=== PATIENT | female | born 1990 | race Caucasian/White ===

== ENCOUNTER 2018-03-22 13:13 | Inpatient (IN) | payer BC, OTHER ==
[~2018-03-22] VITALS: Ht 175.3 cm; Wt 49.9 kg
--- NOTE | 2018-03-22 14:30 | NUR ---
pre-assessment note: pt was assessed in intake office and appears to be very tremulous and verbalizing I'm sick. pt verbalized i'm coming off from a lot of benzo's, pt noted with knee brace and wrist brace d/t injury from seizure history. pt appears to be tremulous during assessment questions but when asked to sort out belongings and sign consent pt appears to stop having tremors pt' V/S wnl. explained unit protocols and procedures. pt verbalized understanding. MD assessed pt in intake office and placed orders right away r/t seizure history.
[2018-03-22 15:25] VITALS: BP 140/94
[2018-03-22] MEDS ORDERED: 6 DAY PHENOBARBITAL TAPER -SERENITY PROTOCOL PO PRN (15:30)
[2018-03-22] MEDS ORDERED: THIAMINE HCL 200 MG/2 ML VIAL IM ONE (15:30)
[2018-03-22] MEDS ORDERED: LORAZEPAM 1 MG TABLET PO PRN (15:30)
[2018-03-22] MEDS ORDERED: LOPERAMIDE HCL 2 MG CAPSULE PO PRN ×2 (15:30)
[2018-03-22] MEDS ORDERED: MIRALAX 17 GM POWD.PACK PO PRN (15:30)
[2018-03-22] MEDS ORDERED: MAGNESIUM HYDROXIDE 30 ML LIQUID UDC PO PRN (15:30)
[2018-03-22] MEDS ORDERED: MAG HYDROX/AL HYDROX/SIMETH 30 ML LIQUID UDC PO PRN (15:30)
[2018-03-22] MEDS ORDERED: diphenhydrAMINE 50 MG CAPSULE PO PRN (15:30)
[2018-03-22 16:00] VITALS: BP 128/88
[2018-03-22 16:00] LABS: BASOPHILS % (AUTO) 0.5 % (0.0-2.0); EOSINOPHILS # (AUTO) 0.1 K/uL (0.0-0.7); EOSINOPHILS % (AUTO) 1.3 % (0.0-7.0); HEMATOCRIT 33.1 % (31.2-41.9); HEMOGLOBIN 10.9 g/dL (10.9-14.3); LYMPHOCYTES # (AUTO) 1.6 K/uL (20.0-40.0); LYMPHOCYTES % (AUTO) 26.3 % (20.5-51.5); MEAN CORPUSCULAR HEMOGLOBIN 27.7 uug (24.7-32.8); MEAN CORPUSCULAR HGB CONC 33 g/dL (32.3-35.6); MEAN CORPUSCULAR VOLUME 83.9 fL (75.5-95.3); MONOCYTES # (AUTO) 0.5 K/uL (2.0-10.0); MONOCYTES % (AUTO) 8.3 % (0.0-11.0); NEUTROPHILS # (AUTO) 3.9 K/uL (1.8-8.9); NEUTROPHILS % (AUTO) 63.6 % (38.5-71.5); PLATELET COUNT (AUTO) 355 K/uL (179-408); RED BLOOD CELL COUNT(AUTO) 3.94 MIL/uL (3.63-4.92); WHITE BLOOD COUNT (AUTO) 6.2 K/uL (3.8-11.8)
[2018-03-22] MEDS ORDERED: PHENOBARBITAL 60 MG TABLET PO SCH (16:00)
[2018-03-22 16:05] LABS: *URINE HCG, QUAL NEGATIVE (NEGATIVE)
[2018-03-22 16:10] LABS: ETHANOL < 3 MG/DL (0-0)
[2018-03-22 16:13] LABS: ALANINE AMINOTRANSFERASE 21 U/L (14-59); ALKALINE PHOSPHATASE 69 U/L (50-136); AMYLASE 42 U/L (25-115); ASPARTATE AMINOTRANSFERASE 16 U/L (15-37); BILIRUBIN,TOTAL 0.3 mg/dL (0.2-1.0); CARBON DIOXIDE 22 mmol/L (21-32); CHLORIDE 105 mmol/L (98-107); CREATININE 0.8 mg/dL (0.6-1.3); GLUCOSE 76 mg/dL (74-106); LIPASE 132 U/L (73-393); POTASSIUM 3.9 mmol/L (3.5-5.1); TOTAL PROTEIN, SERUM 7.7 g/dL (6.4-8.2); UREA NITROGEN, BLOOD 9 mg/dL (7-18)
[2018-03-22 16:14] LABS: *AMPHETAMINE, URINE NEGATIVE (NEGATIVE); *BARBITURATE, URINE POSITIVE (NEGATIVE); *CANNABINOID, URINE NEGATIVE (NEGATIVE); *COCCAINE, URINE NEGATIVE (NEGATIVE); *OPIATE, URINE NEGATIVE (NEGATIVE); *PHENCYCLIDINE SCREEN,URINE NEGATIVE (NEGATIVE)
[2018-03-22 16:23] LABS: THYROID STIMULATING HORMONE 1.993 mIU/mL (0.358-3.740)
[2018-03-22] MEDS: MULTIVITAMINS,THERAPEUTIC TABLET PO SCH (16:26)
[2018-03-22] MEDS: LEVETIRACETAM 500 MG TABLET PO SCH ×2 (16:26→21:07)
[2018-03-22] MEDS: FOLIC ACID 1 MG TABLET PO SCH (16:26)
[2018-03-22] MEDS: ONDANSETRON ODT 4 MG TAB.RAPDIS SL PRN (17:21)
[2018-03-22] MEDS: LORAZEPAM 1 MG TABLET PO PRN (17:21)
--- NOTE | 2018-03-22 17:21 | NUR ---
PRN GIVEN pt was c/o anxiety, agitation, sweats, nausea, dry heaving, and visual and auditory hallucinations. Pt's is observed shaking in bed with enlarged pupils. CIWA score was 22. Ativan 2mg PO PRN and Zofran 4mg SL PRN was given as ordered. Encouraged increase fluid intake. Will continue to monitor.
[2018-03-22 17:46] VITALS: BP 132/86
[2018-03-22 18:00] VITALS: BP 127/94
[2018-03-22] MEDS: IBUPROFEN 600 MG TABLET PO PRN (18:09)
[2018-03-22] MEDS: BUPRENORPHINE HCL 2 MG TAB.SUBL SL PRN (18:09)
[2018-03-22] MEDS: LORAZEPAM 2 MG/1 ML VIAL IM PRN (18:09)
--- NOTE | 2018-03-22 18:09 | NUR ---
NSG NOTE Pt was found on the bathroom floor by RN nurse having seizure like symptoms. Rapid response was called right away at 1746. Seizure like symptoms last for 3 minutes. Rapid response team was up on the unit at 1750. Pt was observed laying the floor with a blank face staring at the ceiling. Pt was able to response to name and touch. Pt is alert and oriented x4. Vital signs at 1746 was BP 132/86, P 100, R 16, O2 100%. Pt was able to stand on her own from the floor and was assisted to bed. Side rails where padded and up x2. VS were checked again at 1800; BP was 127/94, P90, and O2 was 100%. Pt was c/o headache, visual and auditory hallucinations. Dr. Bucio was notified with new order for CT scan of the head without contrast and to administer Ativan 2mg/1ml IM PRN for seizures. New order was noted and carried out. Pt was given Ativan 2mg/1ml IM PRN, Subutex 4mg SL PRN for COWS score of 15 upon admission and Motrin 600mg PO PRN for headache at 1809. Medication was erin well. Pt was encouraged increase fluid intake. After medication was given, pt requested to smoke. Pt was educated on the risks of smoking after seizures and was educated on smoking cessation. Pt needs further education. Pt was also place on 1:1 for safety. Will continue to monitor.
[2018-03-22] MEDS ORDERED: 5 DAY TAPER VALIUM-SERENITY PROTOCOL PO PRN (18:15)
--- NOTE | 2018-03-22 18:30 | NUR ---
PRN RE-ASSESSMENT Ativan 2mg/1ml IM PRN, Subutex 4mg SL and Motrin 600mg PO PRN was effective. Pt was insisting to go down to smoke and was doing jumping jacks in front of commercial lines underwriter. Pt states, "I feel better, I'm not going to have a seizure in the smoking patio". Pt was again educate on smoking cessation and she agreed on Nicotine Patch and Gum. Will continue to f/u with .
--- NOTE | 2018-03-22 19:10 | NUR ---
ADMISSION NOTE Pt is a 27 yr old female, AA&Ox4. Pt is presenting herself to [facility] for ETOH/Benzo/and Opiate use. Pt is observed disheveled and laying in bed, avoiding eye contact. Pt is c/o having visual and auditory hallucinations, nausea, dry heaving, anxiety, agitation, restlessness, teary eyes and loss of appetite. Pt was observed with fine tremors and enlarged pupils. Pt kept stating, "I dont feel good". Body check was complete, Skin is intact, warm and moist to touch. Lung sound are clear bilaterally. 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 Pt is noted immobilizer brace on left leg and brace on left wrist. Pt states of taking Gabapentin 900mg TID, Lamictal 150mg BID, Topamax 200mg BID, Seroquel 300mg HS and Seroquel 25mg as needed for anxiety/agitation . Pt only brought ProAir HFA for asthma. All home medication was reconciled, MD was made aware. No SI/HI was reported. Pt states she has had more than 100 seizures in the past 7 years. Last seizure was on 03/21/18, pt states, "I was walking to [employer] and I just collapsed". Pt states her friend call 911 and was taken to [place] to receive medical care. Pt states she was at the hospital for 12 hrs and was received Ativan for seizures. Last Ativan dose was on 03/22/18 at 0800. Pt also states of overdosing "over 20 times", last OD was 2 months ago and received medical care. Pt states, "my neighbor found me in my car faced up and not responding and called 911". She has also had "more than 50 times" Blackouts from ETOH and experienced withdrawal induced tremors from ETOH. Pt states she has also been on 5150 for danger to self "about 10 times" and one time 5250; Last 5150 was 1 year ago. Pt states PCP is Dr. Laurent and Psychiatrist is Dr. Bob. SUBSTANCE USE: ETOH: Pt states she began drinking daily for the past 8 years. Pt states, "this run has been 7 months drinking 2L of vodka daily", Last use was on 03/22/18 at 1100, pt states of drinking 4-5 shots of vodka Xanax: Pt states she first started using Xanax 11-12 years ago but has been using 60mg PO daily for the last 7 months. Last use was on 03/21/18, Pt states, "I last used at 10 o'clock, I used 3 bars[12mg]". Valium : Pt states she first started using Valium 11-12 yrs ago but has been using 40mg PO daily for the past 7 months. Last use was on 03/21/18 at 2000, pt states she took 40mg PO. Percocet: Pt states she first started using Percocet at 22 yrs old but has been using 60mg PO daily for the past 7 months. Last use was on 03/21/18 at 0900, pt states of consuming 20mg PO. TREATMENT HX: Pt states she has been going in and out of several treatment for the past 7 years. Pt states, "Over 20 treatments" Pt states she is only able to recall the last 2 treatments, which are [facility] [place] in August 2016 and maintain sobriety for 1 year and 1 day. Pt states she relapsed because she moved out on her own for the first time and felt lonely. Pt then went to [facility] 5 months ago and was there for 2 days received Barbiturates. Pt states she was having seizures while at [facility] and was sent to the ER for medical care. Pt states she fist began using "to be cool" and she "liked the feeling of everything when [she] was high" but afterwards she began using daily when she found out she was not able to play soccer. Pt states, "I felt like I lost my dream, I lost my identity". Pt states she feel s like if she does not get sober she will end up losing her life. She verbalizes that her mental illness are her triggers for relapse. Pt states, "If I'm sad or depressed, I use and if I'm angry, I use". Pt states she has friends and family to support her from recovery and out of recovery. Pt states using substances as negatively impacted her life, she states she has lost many jobs, friendships, relationships and states "I almost lost my life". Pt does states of wanting to go into treatment after care. Addendum: 03/23/18 at 1304 by BONY ZAMUDIO RN Clarification of Treatment History: Patient states she was at [facility] 1.5 weeks ago, not 5 months ago. Per patient, she stayed for 2 days and was given phenobarbital.
[2018-03-22] MEDS ORDERED: GABA300C PO (19:42)
[2018-03-22] MEDS ORDERED: LAMO150T2 PO (19:42)
[2018-03-22] MEDS ORDERED: TOPI200T PO (19:43)
[2018-03-22] MEDS ORDERED: QUET300T2 PO (19:44)
[2018-03-22] MEDS ORDERED: QUET25TA PO (19:45)
[2018-03-22 20:00] VITALS: BP 131/88
--- NOTE | 2018-03-22 20:00 | NUR ---
Start of Shift Patient with 1:1 sitter for safety r/t mild weakness on BLE and episodes of seizure-like activity. Patient appears disheveled, with dirty fingernails and strong body odor. Patient also is anxious and easily agitated. Patient with flushed face, is sweating and c/o chills. Patient also verbalized having intermittent visual hallucinations. PRN medications are available and will be given. Provided education on treatment and medications. With brace on left wrist and left knee. Fall, universal, seizure and safety prec in place. Call light within reach. Latest COWS=13, CIWA=16. Will continue to monitor.
[2018-03-22] MEDS ORDERED: ALBU8.5H8 IH (20:23)
[2018-03-22] MEDS ORDERED: NICOTINE 7 MG/24HR PATCH TD ONE (20:30)
[2018-03-22] MEDS ORDERED: QUETIAPINE FUMARATE 200 MG TABLET PO ONE (20:30)
[2018-03-22] MEDS ORDERED: NICOTINE POLACRILEX 4 MG GUM-PK OF TEN BC ONE (20:30)
[2018-03-22] MEDS ORDERED: GABAPENTIN 300 MG CAPSULE PO ONE (20:30)
[2018-03-22] MEDS ORDERED: DIAZEPAM 10 MG TABLET PO SCH (21:00)
[2018-03-22] MEDS ORDERED: NICOTINE POLACRILEX 4 MG GUM-PK OF TEN BC PRN (21:00)
[2018-03-22] MEDS ORDERED: NICOTINE 21 MG/24HR PATCH TD ONE (21:53)
[2018-03-23 00:30] VITALS: BP 135/97
--- NOTE | 2018-03-23 00:30 | NUR ---
COWS=15, CIWA=18 Patient noted to be easily agitated, is anxious, with sweating and has flushed skin. Patient continues to c/o intermittent visual hallucinations, verbalized seeing "olivares are moving" and "jumping rabbits". Continues on 1:1. PRN meds to be administered.
[2018-03-23] MEDS ORDERED: CIPR2.5D OP (00:33)
[2018-03-23] MEDS ORDERED: EMOL20CR TP (00:33)
[2018-03-23] MEDS: NICOTINE 21 MG/24HR PATCH TD SCH (00:41)
[2018-03-23] MEDS: LORAZEPAM 1 MG TABLET PO PRN ×2 (00:41→05:08)
[2018-03-23] MEDS: BUPRENORPHINE HCL 2 MG TAB.SUBL SL PRN ×2 (00:42→05:08)
--- NOTE | 2018-03-23 00:45 | NUR ---
PRN Subutex and PRN Ativan Patient with COWS=15 and CIWA=18, noted to have increasing anxiety, agitation, sweating, chills, flushed skin and bilateral hand tremors. Administered Subutex 4 mg SL PRN and Ativan 2 mg PO PRN. Will reassess.
[2018-03-23] MEDS ORDERED: BUTA1CAP46 PO (00:47)
--- NOTE | 2018-03-23 01:45 | NUR ---
Subutex and Ativan reassess Patient appears more calm, still anxious but verbalized that anxiety level has decreased. Patient continues to have sweats and chills. No hallucinations at this time. COWS=12, CIWA=14.
[2018-03-23 04:00] VITALS: BP 132/84
--- NOTE | 2018-03-23 04:00 | NUR ---
COWS=11, CIWA=13 Patient is easily agitated, less anxious, with sweating and has flushed skin. Patient continues to c/o muscle tightness and has tremors. Continues on 1:1.
--- NOTE | 2018-03-23 05:07 | NUR ---
PRN Motrin Patient c/o pain on left knee=11/12. Administered Motrin 600 mg PO PRN as ordered. Will reassess.
[2018-03-23] MEDS: IBUPROFEN 600 MG TABLET PO PRN (05:08)
--- NOTE | 2018-03-23 05:09 | NUR ---
PRN Subutex and Ativan Patient c/o increasing anxiety, with intermittent visual hallucination, sweating and flushed skin. Patient also noted to have tremors. COWS=13, CIWA=16. Administered Subutex 4 mg SL and Ativan 2 mg PO. Will reassess.
--- NOTE | 2018-03-23 05:40 | NUR ---
Subutex reassess Patient with decreased tremors and appears less anxious. COWS=10.
--- NOTE | 2018-03-23 06:08 | NUR ---
Motrin reassess Patient verbalized pain level=2-3/10.
--- NOTE | 2018-03-23 06:10 | NUR ---
Ativan reassess Patient verbalized feeling less anxious and noted to have less tremors. CIWA=12.
--- NOTE | 2018-03-23 07:27 | NUR ---
End of Shift Patient continues to have intermittent visual hallucinations and with anxiety and is easily agitated. Patient continues to be on 1:1 for safety. No episode of seizure-like activity during the shift. Patient appears flushed, with moist skin on the face and with racing thoughts. Patient is disheveled, unkempt and with strong body odor. Braces on left knee and left wrist are in place. Fall, universal, seizure and safety prec in place. Call light within reach. Latest COWS= 10, CIWA=12 and slept for 7 hours. Endorsed to AM shift nurse for continuity of care.
--- NOTE | 2018-03-23 07:30 | NUR ---
Start of Shift Rifle Case Repairer received report on 27 year old female admitted to [facility] on 03/22/18 for medical management of ETOH, Benzodiazepine and Opiate withdrawals. Pt endorses allergies to Hydrocodone and unspecified nuts. Pt endorses a PMH of asthma, tinnitus, history of ulcers and history of seizures, with chronic back pain. PPH of anxiety, depression, anorexia, panic attacks and Bipolar DO. Pt currently on a Valium and Subutex taper with last CIWA 12 and COWS 10, per NOC report. Per report pt was administered PRN Ativan and Subutex, on NOC. Rifle Case Repairer encounters pt in pts room, pt resting with eyes closed, even and unlabored respirations. Bed in low position with wheels locked and side rails up x2. Will continue to monitor, support and encourage according to plan of care. Addendum: 03/23/18 at 1145 by JAE FRAZIER RN Pt currently with 1:1 staffing due to seizure like event pt experienced yesterday.
[2018-03-23 08:00] VITALS: BP 106/68
--- NOTE | 2018-03-23 08:00 | NUR ---
CIWA 10/COWS 10 Pt is diaphoretic, tremulous and anxious. With complains of myalgia and nausea. Will continue to monitor, support and encourage according to plan of care.
[2018-03-23] MEDS ORDERED: PHENOBARBITAL 60 MG TABLET PO SCH (09:00)
[2018-03-23] MEDS ORDERED: TUBERCULIN,PURIF.PROT.DERIV. 5 TU/0.1 ML TEST ID ONE (09:00)
[2018-03-23] MEDS: DIAZEPAM 10 MG TABLET PO SCH ×3 (09:57→21:02)
[2018-03-23] MEDS: ****PATIENT'S OWN MED IH PRN (09:57)
[2018-03-23] MEDS: THIAMINE HCL 100 MG TABLET PO SCH (09:57)
[2018-03-23] MEDS: LEVETIRACETAM 500 MG TABLET PO SCH ×2 (09:57→21:01)
[2018-03-23] MEDS: FOLIC ACID 1 MG TABLET PO SCH (09:57)
[2018-03-23] MEDS: MULTIVITAMINS,THERAPEUTIC TABLET PO SCH (09:57)
[2018-03-23] MEDS: BUPRENORPHINE HCL 2 MG TAB.SUBL SL SCH ×4 (09:58→21:02)
[2018-03-23 12:00] VITALS: BP 96/62
--- NOTE | 2018-03-23 12:00 | NUR ---
CIWA 15/COWS 12 Pt is diaphoretic, tremulous, anxious and restless. Pt with complaints of nausea and myalgia. Will continue to monitor, support and encourage according to plan of care.
[2018-03-23] MEDS ORDERED: PATIENT MAY USE OWN MED- MD OK INH PRN (13:15)
[2018-03-23] MEDS: GABAPENTIN 300 MG CAPSULE PO SCH ×2 (13:56→17:25)
[2018-03-23] MEDS: LAMOTRIGINE 100 MG TABLET PO SCH ×2 (13:57→21:01)
[2018-03-23] MEDS: TOPIRAMATE 100 MG TABLET PO SCH ×2 (13:57→21:02)
[2018-03-23] MEDS ORDERED: 5 DAY TAPER BUPRENORPHINE -SERENITY PROTOCOL SL PRN (15:30)
[2018-03-23 16:30] VITALS: BP 109/61
--- NOTE | 2018-03-23 16:30 | NUR ---
CIWA 11/COWS 11 Pt is diaphoretic, fine tremors, anxious and restless, with complaints of myalgia and chills. Will continue to monitor, support and encourage according to plan of care.
--- NOTE | 2018-03-23 19:30 | NUR ---
End of Shift [place]ra [place]ta Roofer Helper provided report on 27 year old female admitted to [facility] on 03/22/18 for medical management of ETOH, Benzodiazepine and Opiate withdrawals. Pt endorses allergies to Hydrocodone and unspecified nuts. Pt endorses a PMH of asthma, tinnitus, history of ulcers and history of seizures, with chronic back pain. PPH of anxiety, depression, anorexia, panic attacks and Bipolar DO. Pt currently on a Valium and Subutex taper with last CIWA 11 and COWS 11. Pt was administered PRN Asthma inhaler and Nicotine gum this shift. Pt is A/O x4 and able to make needs known. Gardner thought process with clear speech pattern. Pt is manipulative and entitled at times. Flat affect with a depressed mood. Pt is anxious, restless, diaphoretic, tremulous and complains of myalgia and chills. Bed in low position with wheels locked and side rails up x2.
--- NOTE | 2018-03-23 19:47 | NUR ---
START OF SHIFT NOTE Rcvd report from outgoing nurse. Pt is a 27 y/o female A/O to person, place, time, and purpose. Pt was admitted for medically supervised withdrawal from ETOH, Benzodiazepines, and Opiates. Pt is on day 1 of a 5 day Valium and Subutex taper. Pt has been presenting w/ anxiety, auditory and visual hallucinations, body aches, sweats, chills, lethargy, abdominal cramps, and tremors. Pt rcvd no PRN medications during previous shift. Last CIWA 11 and COWS 11 @ 1600. Call light is within reach. Pt will continue to be monitored and needs met.
[2018-03-23 20:09] VITALS: BP 97/55
--- NOTE | 2018-03-23 20:09 | NUR ---
CIWA AND COWS ASSESSMENT CIWA 13 and COWS 11. Pt has been presenting w/ anxiety, auditory and visual hallucinations, body aches, sweats, chills, lethargy, abdominal cramps, and tremors. V/S: T:98.0, P:90, RR:14, SPO2:100, BP:97/55.
[2018-03-23] MEDS: ONDANSETRON ODT 4 MG TAB.RAPDIS SL PRN (23:25)
--- NOTE | 2018-03-23 23:25 | NUR ---
PRN ZOFRAN ADMINISTRATION Zofran 4mg SL given for nausea w/ no emesis. Will reassess pt in 1 hr.
--- NOTE | 2018-03-24 00:12 | NUR ---
CIWA AND COWS DEFERRED. V/S REFUSED Pt was in bed w/ her eyes closed. Pt's respirations are unlabored and even.
--- NOTE | 2018-03-24 00:25 | NUR ---
PRN ZOFRAN REASSESSMENT Pt is in bed w/ her eyes closed. Pt's respirations are unlabored and even.
[2018-03-24] MEDS: METHOCARBAMOL 750 MG TABLET PO PRN ×2 (01:07→15:30)
--- NOTE | 2018-03-24 01:07 | NUR ---
PRN ROBAXIN ADMINISTRATION Robaxin 750mg given for body aches and pain. Pt c/o generalized pain 12/13. Will reassess pt in 1 hr
--- NOTE | 2018-03-24 02:06 | NUR ---
Seizure like activity 1:1 observer called nurse to room for seizure like activity noted from patient. Nurse arrived in room and witnessed patient having seizure like convulsions with no muscle rigidity, teeth grinding, nor jaw clenching. Safety provided by guarding patient from injury. Activity lasted from 205 until 215, second occurrence from 215 until 220, third occurrence from 222 until 223, and fourth occurrence from 227 until 233. V/S @0243 BP: 118/69 HR: 109 RR: 16 T: 98.4 O2: 97%, and @0252 BP: 114/70 HR: 100 RR: 16 T: 98.6 O2: 95% . MD made aware with no new orders at this time. Pt is alert and oriented and able to communicate needs to staff. Respirations even and unlabored. Will continue to monitor. Addendum: 03/25/18 at 0620 by ROSY STALLINGS LVN Error, incorrect date.
--- NOTE | 2018-03-24 02:07 | NUR ---
PRN MAKI REASSESSMENT Pt is in bed w/ her eyes closed. pt's respirations are unlabored and even.
[2018-03-24] MEDS: ****PATIENT'S OWN MED IH PRN (03:31)
[2018-03-24] MEDS: HYDROXYZINE PAMOATE 25 MG CAPSULE PO PRN (03:31)
[2018-03-24] MEDS: CLONIDINE HCL 0.1 MG TABLET PO PRN (03:31)
--- NOTE | 2018-03-24 03:31 | NUR ---
PRN CLONIDINE, VISTARIL, AND VENTOLIN ADMINISTRATION Clonidine 0.1mg and Vistaril 50mg given for anxiety, agitation, and sweats. Pt c/o not being able to stay asleep bc of racing thoughts, restlessness, and bouts of sweating/hot flashes. Ventolin Inhaler 1 puff given for SOB. Pt c/o tightness in chest and difficulty breathing. Will reassess pt in 1 hr.
--- NOTE | 2018-03-24 04:04 | NUR ---
CIWA AND COWS DEFERRED. V/S REFUSED Pt is in bed w/ her eyes closed. Pt's respirations are unlabored and even.
--- NOTE | 2018-03-24 04:31 | NUR ---
PRN VISTARIL, CLONIDINE, AND VENTOLIN REASSESSMENT Pt is in bed w/ her eyes closed. Pt's respirations are unlabored and even.
[2018-03-24 07:06] LABS: HEPATITIS B SURFACE AG Negative (Negative)
--- NOTE | 2018-03-24 07:10 | NUR ---
END OF SHIFT NOTE Endorsed pt to oncoming nurse. Pt is a 27 y/o female A/O to person, place, time, and purpose. Pt was admitted for medically supervised withdrawal from ETOH, Benzodiazepines, and Opiates. Pt completed day 1 of a 5 day Valium and Subutex taper. Pt continues presenting w/ anxiety, auditory and visual hallucinations, body aches, sweats, chills, lethargy, abdominal cramps, and tremors. Pt denies any S/I or H/I. PRN Vistaril 50mg, Clonidine 0.1mg, Zofran 4mg, Robaxin 750mg, and Ventolin 1 puff given and noted effective. Pts fluid intake was 800ml and she slept for 9hrs. Last CIWA 13 and COWS 11 @ 1999. Call light is within reach.
--- NOTE | 2018-03-24 07:30 | NUR ---
Start of Shift Gas Appliance Mechanic received report on 27 year old female admitted to [facility] on 03/22/18 for medical management of ETOH, Benzodiazepine and Opiate withdrawals. Pt endorses allergies to Hydrocodone and unspecified nuts. Pt endorses a PMH of asthma, tinnitus, history of ulcers and history of seizures, with chronic back pain. PPH of anxiety, depression, anorexia, panic attacks and Bipolar DO. Pt currently on a Valium and Subutex taper with last CIWA 13 and COWS 11, per NOC report. Per report pt was administered PRN Zofran(nausea), Vistaril(anxiety), Clonidine(anxiety), Robaxin(myalgia) and Ventolin Inhaler(SOB), on NOC. Gas Appliance Mechanic encounters pt in pts room, pt resting with eyes closed, even and unlabored respirations. 1:1 staff attendant at bedside. Bed in low position with wheels locked and side rails up x2. Will continue to monitor, support and encourage according to plan of care.
[2018-03-24 08:00] VITALS: BP 115/78
--- NOTE | 2018-03-24 08:00 | NUR ---
CIWA 13/COWS 11 Pt is diaphoretic, irritable, tremulous, anxious, restless and has complaints of nausea and chills with pain related to orthopedic injuries. Will continue to monitor, support and encourage according to plan of care.
[2018-03-24] MEDS: NICOTINE 21 MG/24HR PATCH TD SCH ×2 (09:00→20:31)
[2018-03-24] MEDS ORDERED: PHENOBARBITAL 60 MG TABLET PO SCH (09:00)
[2018-03-24] MEDS: GABAPENTIN 300 MG CAPSULE PO SCH ×3 (09:10→17:20)
[2018-03-24] MEDS: THIAMINE HCL 100 MG TABLET PO SCH (09:10)
[2018-03-24] MEDS: BUPRENORPHINE HCL 2 MG TAB.SUBL SL SCH ×3 (09:10→20:18)
[2018-03-24] MEDS: TOPIRAMATE 100 MG TABLET PO SCH ×2 (09:10→20:19)
[2018-03-24] MEDS: FOLIC ACID 1 MG TABLET PO SCH (09:10)
[2018-03-24] MEDS: MULTIVITAMINS,THERAPEUTIC TABLET PO SCH (09:10)
[2018-03-24] MEDS: LEVETIRACETAM 500 MG TABLET PO SCH ×2 (09:10→20:19)
[2018-03-24] MEDS: DIAZEPAM 5 MG TABLET PO SCH ×4 (09:10→20:19)
[2018-03-24] MEDS: LAMOTRIGINE 100 MG TABLET PO SCH ×2 (09:11→20:19)
[2018-03-24 12:00] VITALS: BP 88/46
--- NOTE | 2018-03-24 12:00 | NUR ---
CIWA 16/COWS 11 Pt is diaphoretic, tremulous, anxious, restless, nauseous and complains of tactile and visual hallucinations. Will continue to monitor, support and encourage according to plan of care.
[2018-03-24] MEDS: ONDANSETRON ODT 4 MG TAB.RAPDIS SL PRN (13:27)
--- NOTE | 2018-03-24 13:27 | NUR ---
LIZ Carpenter Pt states she is nauseous and would like medication. Bushwalking Guide administered medication to order, with pt tolerating well. Will continue to monitor, support and encourage according to plan of care.
[2018-03-24] MEDS ORDERED: AMMONIA AROMATIC IH ONE ×4 (14:15→16:45)
--- NOTE | 2018-03-24 14:15 | NUR ---
MD Communication: Patient presenting with seizure-like symptoms. Verbal order received for aromatic ammonia. Order noted and carried out. Order entered on behalf of Dr. Bucio during emergency/rapid response.
[2018-03-24] MEDS: LORAZEPAM 2 MG/1 ML VIAL IM PRN (14:25)
--- NOTE | 2018-03-24 14:25 | NUR ---
PRN IM Ativan Pt presents with seizure like symptoms. Medication and is prepared and administered per MD order. Dr. Bucio is present. Pt tolerated administration well. Will continue to monitor, support and encourage according to plan of care.
--- NOTE | 2018-03-24 14:30 | NUR ---
Seizure Like Activity Pt with 1:1 staff at bedside for safety. 1:1 attendant alerted staff of seizure like activity, beginning at 1408, pt convulsing and shaking. Director Of Community Education arrives with staff supporting pt in bed, for safety. O2 monitor attached saturating at 92%, applied non-rebreather and pt now saturating at 99% on 2L, with respirations at 14. BP: 126/71 with pulse of 121. Pt continues convulsing until 1411. Pt abruptly stops, but begins convulsing again at 1412 and Rapid Response is called. Pt continued convulsing until 1415, with RR team on the scene at 1418. Dr. Bucio is present in the room and instructs staff to administer Ativan IM per PRN orders. Pt's eyes are reactive to light, respirations are unlabored, no muscle rigidity or clenching of the jaw noted. Pt was noted to have been communicating with staff at start of convulsions. Pt is currently A/O and is making her needs known. Asking for medication for muscle spasms and pain related to seizure like activity.
--- NOTE | 2018-03-24 14:48 | NUR ---
Neurology Consult: placed order for neurology consult. Dr. Lyn's office called and left a message for urgent consult.
--- NOTE | 2018-03-24 14:55 | NUR ---
PRN Re-Assessment Pt is resting in room with no complaints voiced. Will continue to monitor, support and encourage according to plan of care.
[2018-03-24] MEDS: IBUPROFEN 600 MG TABLET PO PRN ×2 (15:30→23:52)
--- NOTE | 2018-03-24 15:30 | NUR ---
PRN Motrin and Robaxin Pt complains of pain and muscle soreness. Pt requests medications by name. Digital Media Buyer administered medication per order with pt tolerating well. Will continue to monitor, support and encourage according to plan of care.
[2018-03-24] MEDS: VENLAFAXINE XR 37.5 MG CAP.SR.24H PO SCH (15:38)
--- NOTE | 2018-03-24 16:03 | NUR ---
Seizure Like Activity Seed Analyst called to pt's room by 1:1 attendant. Pt is convulsing with staff at pt's side holding pt for safety. Pt convulsed until 1606 and abruptly stopped. Pt BP: 120/61, Resp 16, O2 95% and pulse 112. Pt is convulsing with no rigidity in muscles noted. No jaw clenching or jaw grinding noted. Pt's respirations remained even and unlabored thru out activity. Pt with no evacuation of bowels or urine. Will continue to monitor, support and encourage according to plan of care.
[2018-03-24 16:30] VITALS: BP 120/61
--- NOTE | 2018-03-24 16:30 | NUR ---
PRN RE-Assessment Pt is resting in bed with 1:1 staff at bedside. Will continue to monitor, support and encourage according to plan of care.
--- NOTE | 2018-03-24 16:33 | NUR ---
Neurology Consult: Called Dr. Lyn's office again but no reply. Left message message for urgent neurology consult. shuttle preparation supervisor gave number for different neurologist, . No answer from Dr. Max's office. Left message for urgent neurology consult.
--- NOTE | 2018-03-24 16:44 | NUR ---
Seizure Like Activity Assistant Finance Manager alerted to pt's room by 1:1 staff due to pt begging to convulse. Assistant Finance Manager arrives in pt's room with staff present providing safety for pt by holding pt. Pt is convulsing with no muscle rigidity, jaw clenching or grinding. Respirations remained even and unlabored at 14. BP: 127/82 - Pulse 108 - O2 96%. Pt stops convulsing at 1746. CRN and DON present in the room. notified. Pt is A/O and able to make her needs known. Will continue to monitor, support and encourage according to plan of care.
--- NOTE | 2018-03-24 19:32 | NUR ---
Seizure like activity 1:1 observer called nurse to room for seizure like activity noted from patient. Nurse arrived in room and witnessed patient having seizure like convulsions with no muscle rigidity, teeth grinding, nor jaw clenching. Safety provided by guarding patient from injury. activity lasted until 1940. V/S @1940 BP: 130/72 HR: 109 RR: 14 T: 98.2 O2: 99% and @1949 BP: 108/63 HR: 95 RR: 16 T: 98.4 O2: 99%. made aware with no new orders at this time. Pt is alert and oriented and able to communicate needs to staff. Respirations even and unlabored. Will continue to monitor.
--- NOTE | 2018-03-24 19:34 | NUR ---
End of Shift Rate Clerk Passenger provided report on 27 year old female admitted to [facility] on 03/22/18 for medical management of ETOH, Benzodiazepine and Opiate withdrawals. Pt endorses allergies to Hydrocodone and unspecified nuts. Pt endorses a PMH of asthma, tinnitus, history of ulcers and history of seizures, with chronic back pain. PPH of anxiety, depression, anorexia, panic attacks and Bipolar DO. Pt currently on a Valium and Subutex taper with last CIWA 11 and COWS 12. Pt was administered PRN Robaxin(myalgia), Zofran(nausea), Motrin(pain) and Ativan IM(seizure like activity) on this shift. Pt had three episodes of seizure like activities today. Pt was convulsing and shaking, no muscle rigidity or jaw clenching or teeth grinding noted. Pts respirations remained even and unlabored and pt did not evacuate bowels or urine. Pt is A/O and makes her needs known. Blunted affect and depressed mood, dysphoric. Pt is pre-occupied and slow to process at times. Pt is manipulative and gamey. Bed in low position with wheels locked and side rails up x2.
--- NOTE | 2018-03-24 19:35 | NUR ---
Start of shift note Received report from day shift nurse. Pt is a 27 yo female, A+Ox4, presenting to [facility] for medically supervised ETOH/Benzo/Opiate withdrawal. Pt noted with fatigue, anxiety, agitation, and sweat on brow. Pt has HX of anxiety, depression, bipolar disorder, panic attacks, ulcers, seizure, Left knee FX and SX, sprained Left wrist, tinnitus, anorexia, chronic back pain, and UTI which will be monitored during shift. Pt is on 5 day Valium and 5 day Subutex tapers, tolerated well. Respirations even and unlabored. Will continue to monitor.
[2018-03-24 20:12] VITALS: BP 101/61
--- NOTE | 2018-03-24 20:12 | NUR ---
COWS and CIWA Assessment COWS: 11 and CIWA: 10. Pt noted with nausea, fine tremors, sweat on brow, anxiety, agitation, pulse 94, restlessness, mild diffuse discomfort, stuffy nose, and stomach cramps. Respirations even and unlabored. Will continue to monitor.
--- NOTE | 2018-03-24 23:52 | NUR ---
PRN Motrin Pt c/o generalized body pain 5/10 and requested for PRN Motrin. Medication given and tolerated well. Will reassess within 1 HR. Will continue to monitor.
[2018-03-25 00:07] VITALS: BP 109/73
--- NOTE | 2018-03-25 00:07 | NUR ---
COWS and CIWA Assessment COWS: 9 and CIWA: 10. Pt noted with pulse 89, chills, sweat on brow, restlessness, enlarged pupils, fine tremors, yawning, anxiety, and agitation. Respirations even and unlabored. Will continue to monitor.
--- NOTE | 2018-03-25 00:40 | NUR ---
PRN Motrin Reassessment Medication effective. Pt is resting well in bed. No s/s of ASE noted at this time. Respirations even and unlabored. Will continue to monitor.
[2018-03-25] MEDS: METHOCARBAMOL 750 MG TABLET PO PRN ×3 (01:55→23:25)
[2018-03-25] MEDS: ONDANSETRON ODT 4 MG TAB.RAPDIS SL PRN ×3 (01:56→16:11)
--- NOTE | 2018-03-25 01:56 | NUR ---
PRN Robaxin and Zofran Pt c/o generalized muscle aches 8/10 and nausea and requested for PRN Robaxin and Zofran. Medications given and tolerated well. Will reassess within 1 HR. will continue to monitor.
--- NOTE | 2018-03-25 02:06 | NUR ---
Seizure like activity 1:1 observer called nurse to room for seizure like activity noted from patient. Nurse arrived in room and witnessed patient having seizure like convulsions with no muscle rigidity, teeth grinding, nor jaw clenching. Safety provided by guarding patient from injury. Activity lasted from 0206 until 0216, second occurrence from 215 until 220, third occurrence from 222 until 223, and fourth occurrence from 227 until 4. V/S @0243 BP: 118/69 HR: 109 RR: 16 T: 98.4 O2: 97%, and @0252 BP: 114/70 HR: 100 RR: 16 T: 98.6 O2: 95% . MD made aware with no new orders at this time. Pt is alert and oriented and able to communicate needs to staff. Respirations even and unlabored. Will continue to monitor.
[2018-03-25] MEDS ORDERED: AMMONIA AROMATIC IH ONE ×3 (02:20→10:00)
[2018-03-25] MEDS ORDERED: ONDANSETRON 4 MG/2 ML VIAL IM ONE (03:30)
--- NOTE | 2018-03-25 04:55 | NUR ---
V/S refused and COWS and CIWA assessment deferred for sleep. Respirations even and unlabored. Will continue to monitor.
--- NOTE | 2018-03-25 05:31 | NUR ---
ONE TIME ZOFRAN IM Pt complains of nausea/vomiting x1 unrelieved by PRN Zofran ODT. One time Zofran IM administered as ordered. Will monitor effectiveness.
--- NOTE | 2018-03-25 05:57 | NUR ---
ONE time Zofran Reassessment Medication effective. Pt expresses reduction of nausea. No s/s of ASE noted at this time. Respirations even and unlabored. Will continue to monitor. Respirations even and unlabored. Will continue to monitor.
--- NOTE | 2018-03-25 06:02 | NUR ---
Seizure like activity 1:1 observer called nurse to room for seizure like activity noted from patient. Nurse arrived in room and witnessed patient having seizure like convulsions with no muscle rigidity, teeth grinding, nor jaw clenching. Safety provided by guarding patient from injury. Activity lasted from 0602 until 0608. V/S @0610 BP: 120/74 HR: 105 RR: 16 T: 98.0 O2: 98%, and @0620 BP: 117/79 HR: 95 RR: 16 T: 98.4 O2: 96% . made aware with no new orders at this time. Pt is alert and oriented and able to communicate needs to staff. Respirations even and unlabored. Will continue to monitor.
--- NOTE | 2018-03-25 07:00 | NUR ---
End of shift note Pt was continuously noted with multiple episodes of seizure like activities, fatigue, anxiety, and agitation. Pt remained in room for entire shift on 1:1 observation. Pt remained cooperative and compliant with all aspects of treatment. Pt was given PRN Motrin @2352, PRN Robaxin and Zofran SL @0156, and One time dose of Zofran IM @0457. Pt remains on 5 day Valium and 5 day Subutex tapers, tolerated well. Pt slept for a total of 6 HRS. Last COWS: 9 and Last CIWA: 10 @0007. Respirations even and unlabored. Will endorse to day shift nurse.
--- NOTE | 2018-03-25 07:30 | NUR ---
START OF SHIFT Pt 27 y/o female admitted for etoh/ benzo/ opiate withdrawal. Pt received in room on bed with eyes closed resting. Pt with sitter 1:1 for safety. Pt alert and oriented to name, place, and time. Perrla. Skin warm and moist to touch. Respirations even and unlabored. Appears disheveled and unkempt. Clothes scattered throughout the room. Encouraged to maintain hygiene. Anxious and restless. Bilateral hand tremors noted. Pressured speech noted. Complaints of generalized discomfort. It was reported that pt slept for 6 hours last night. Last cows=9 ciwa=10. Pt is on a 5 day valium and is on day 4. Pt also on a modified subutex taper and is on day 4. Bed on lowest position with side rails x2 up for safety. Call light within reach.
[2018-03-25 08:00] VITALS: BP 106/60
--- NOTE | 2018-03-25 08:00 | NUR ---
COWS CIWA ASSESSMENT cows=12 ciwa =10. Bilateral hand tremors noted. Appears fatigued. Pressured speech. Anxious and restless. Fidgety. Irritable. Complaints of generalized discomfort.
[2018-03-25] MEDS: VENLAFAXINE XR 37.5 MG CAP.SR.24H PO SCH (09:00)
[2018-03-25] MEDS: LAMOTRIGINE 100 MG TABLET PO SCH ×2 (09:00→20:47)
[2018-03-25] MEDS ORDERED: BUPRENORPHINE HCL 2 MG TAB.SUBL SL SCH (09:00)
[2018-03-25] MEDS ORDERED: PHENOBARBITAL 60 MG TABLET PO SCH (09:00)
[2018-03-25] MEDS: DIAZEPAM 5 MG TABLET PO SCH ×3 (09:00→20:47)
[2018-03-25] MEDS: GABAPENTIN 300 MG CAPSULE PO SCH ×3 (09:00→16:11)
[2018-03-25] MEDS: FOLIC ACID 1 MG TABLET PO SCH (09:01)
[2018-03-25] MEDS: MULTIVITAMINS,THERAPEUTIC TABLET PO SCH (09:01)
[2018-03-25] MEDS: THIAMINE HCL 100 MG TABLET PO SCH (09:01)
[2018-03-25] MEDS: LEVETIRACETAM 500 MG TABLET PO SCH (09:01)
[2018-03-25] MEDS: TOPIRAMATE 100 MG TABLET PO SCH ×2 (09:01→20:46)
[2018-03-25] MEDS: NICOTINE 21 MG/24HR PATCH TD SCH (09:01)
--- NOTE | 2018-03-25 09:10 | NUR ---
PRN ZOFRAN Pt with complaints of nausea. Zofran odt prn per MD order given and tolerated well.
--- NOTE | 2018-03-25 09:30 | NUR ---
SHAKING SPELLS Pt in room observed with shaking spells, which lasted for 5 minutes and 20 seconds. During shaking spell, pt observed with both hands not clenched and mandible not locked. Pt responsive to amonia during shaking spells, observed with eyes closed leaning head back when amonia was introduced. Kept pt turned to her side for the whole duration of the shaking spell. FE=668/67 P=92 O2=95%@ra. Pt remains on 1:1 to monitor for safety. made aware.
--- NOTE | 2018-03-25 10:02 | NUR ---
NEURO CONSULT Jackie BAKER on unit to evaluate pt. Addendum: 03/25/18 at 1357 by CARLIN MORENO RN Incorrect name Dr. Lyn on unit to evaluate pt.
--- NOTE | 2018-03-25 10:10 | NUR ---
PRN ZOFRAN EVAL States still feels nauseated.
--- NOTE | 2018-03-25 10:12 | NUR ---
PRN ROBAXIN STates has body acehs 12/13. Robaxin po prn per MD order give and tolerated well.
[2018-03-25] MEDS: ONDANSETRON 4 MG/2 ML VIAL IM PRN (10:21)
--- NOTE | 2018-03-25 10:26 | NUR ---
PRN ZOFRAN IM Vomit episode x1 of food particles. Zofran IM prn per MD order given and tolerated well.
--- NOTE | 2018-03-25 11:12 | NUR ---
PRN MAKI ROTH Pt states medication effective.
--- NOTE | 2018-03-25 11:26 | NUR ---
PRN ZOFRAN EVAL No vomit episode noted.
[2018-03-25 12:00] VITALS: BP 115/64
--- NOTE | 2018-03-25 12:00 | NUR ---
COWS CIWA ASSESSMENT cows=14 ciwa =12. Bilateral hand tremors. Fatigued. Vomiting episodes and complaints of nausea. States has generalized discomfort and body aches. Restless.
--- NOTE | 2018-03-25 13:00 | NUR ---
URINE RETENTION Pt states not able to urinate. Bladder scan resulted 638mL. aware and awaiting orders for straight cath and UA.
[2018-03-25] MEDS: BUPRENORPHINE HCL 2 MG TAB.SUBL SL SCH ×2 (14:05→20:48)
--- NOTE | 2018-03-25 15:00 | NUR ---
IN & OUT CATH New order for in & out cath , noted and carried out. Urine yellow in color and cloudy. Collected 400mL of urine. UA sample collected and brought to lab.
--- NOTE | 2018-03-25 15:06 | NUR ---
Therapist prompted client to attend group therapy sessions.
[2018-03-25 15:35] LABS: *BILIRUBIN,URIN NEGATIVE (NEGATIVE); *BLOOD, URINE NEGATIVE (NEGATIVE); *KETONES,URINE NEGATIVE (NEGATIVE); *PROTEIN,URINE NEGATIVE (NEGATIVE); *UROBILINOGEN,URINE 0.2 E.U./dl (NORMAL); LEUKOCYTE ESTERASE ,URINE TRACE (NEGATIVE); NITRITE, URINE POSITIVE (NEGATIVE); PH,URINE 8.5 (5.0-8.0); UGLUCOSE NEGATIVE (NEGATIVE)
[2018-03-25 16:00] VITALS: BP 120/72
--- NOTE | 2018-03-25 16:00 | NUR ---
COWS CIWA ASSESSMENT cows=14 ciwa=13. Anxious and restless. Fidgety. Nausea. Bilateral hand tremors. Easily irritable. Crying episodes. Complaints of body aches and generalized discomfort.
[2018-03-25 16:10] LABS: *CLARITY,URINE CLOUDY (CLEAR); *COLOR,URINE YELLOW (YELLOW)
[2018-03-25 16:11] LABS: BACTERIA,URINE MANY /HPF (NONE SEEN); SQUAMOUS EPITHELIAL CELL,UR FEW /HPF (NONE SEEN)
[2018-03-25 16:12] LABS: MUCUS,URINE MODERATE /LPF (0-FEW); URINE AMORPHOUS PHOSPHATES MODERATE /HPF
[2018-03-25] MEDS: HYDROXYZINE PAMOATE 25 MG CAPSULE PO PRN ×2 (17:05→23:25)
[2018-03-25] MEDS: CLONIDINE HCL 0.1 MG TABLET PO PRN (17:05)
--- NOTE | 2018-03-25 17:07 | NUR ---
PRN CATAPRES VISTARIL Pt states very anxious. Restless. Crying episodes. Catapres po prn per MD order given and tolerated well. Vistaril po prn per MD order given and tolerated well.
[2018-03-25] MEDS: LORAZEPAM 2 MG/1 ML VIAL IM PRN (17:49)
--- NOTE | 2018-03-25 17:49 | NUR ---
SHAKING SPELLS Pt in room on bed. Observed shaking spells. No fist clenching or locked mandible noted. Also observed turning from side to side. Pt turned to the side. Multiple staff present for pt safety. Shaking spell lasted 8 minutes. Ativan 2mg IM prn per MD order given. Sitter 1:1 remains with pt for safety. Addendum: 03/25/18 at 1903 by CARLIN MORENO RN additional TX=[id number] P=104 O2=96%@ra
--- NOTE | 2018-03-25 18:07 | NUR ---
PRN CATAPRES AND VISTARIL EVAL Pt states medications were effective.
--- NOTE | 2018-03-25 18:29 | NUR ---
PRN ZOFRAN IM Pt with vomit episode x 1. Zofran IM prn per MD order given and tolerated well.
--- NOTE | 2018-03-25 18:35 | NUR ---
SHAKING SPELLS Pt on bed in room. Shaking spell observed and last for 5 minutes. Pt turned to side for safety. Multiple staff present to ensure safety. No clenched fists noted. No locked mandible noted. Episodes of pt raising arms up during shaking spells. JR=873/88 P=100 O2=96%@ra. Sitter 1:1 remained with pt to monitor for safety.
--- NOTE | 2018-03-25 18:49 | NUR ---
PRN ATIVAN EVAL pt observed on bed with eyes closed resting, but arousable to name.
--- NOTE | 2018-03-25 19:14 | NUR ---
END OF SHIFT Pt 27 y/o female admitted for etoh/ benzo/ opiate withdrawal. Pt alert and oriented to name, place, and time. Perrla. Skin warm and moist to touch. Respirations even an unlabored. Appears disheveled and unkempt. Hair uncombed. Malodorous. Clothes scattered throughout the room. Encouraged to maintain hygiene. Anxious and restless. Pressured speech. Fidgety. Complaints of body aches and generalized discomfort. Nausea with vomit episodes today. Remains on 1:1 for safety. Did not attend group activity. Medication compliant. Pt with multiple shaking spells today. Pt is on a 5 day valium taper and is on day 4. Last cows=14 ciwa=13 @ 1600. Pt also on a 5 day subutex taper and is on day 4. Bed on lowest position with side rails x2 up for safety. Call light within reach.
--- NOTE | 2018-03-25 19:15 | NUR ---
Start of Shift Note Pt is a 27 y/o female admitted for ETOH, Xanax, Valium & Percocet use. Pt received resting in bed watching TV. 1:1 Sitter at bedside for safety. Pt alert and oriented to name, place and situation. Pt appears with a flat affect, anxious and depressed mood. She is disheveled and unkempt. Clothes were scattered throughout the room. Pt presents with sweating, chills, c/o left knee and right wrist pain. Bilateral hand tremors noted and complains of mild headache. She is on a Modified Subutex and Valium taper and is now on day 4. Reports received that pt with multiple episodes of shaking spells during the day and received PRN Ativan 2mg IM, pt also received PRN Zofran IM, Zofran SL, Clonidine, Vistaril & Robaixn during the day. Last CIWA 13. Explained to patient current plan of care of the night and medication regimen. Both side rails up. Bed in the lowest position. Call light within pts reach. Will continue to monitor patient.
[2018-03-25] MEDS: SULFAMETH/TRIMETH 800/160 MG TABLET PO SCH ×2 (19:31→20:47)
[2018-03-25 20:00] VITALS: BP 104/67
--- NOTE | 2018-03-25 20:15 | NUR ---
Shaking Spells Called Nurse to pt's room. Pt observed with shaking spells. Pt turned side to side for safety. Oxygen introduced at 2lpm via nasal cannula. During episode, extremities were not rigid, jaws were not clenched and no incontinence noted. Multiple staff present for pt safety. Episode started at 1958 and lasted for 3:38mins. Vitals taken after episode. Noted with B/P 129/82, AZ 108, AZ 97%, RR 18. Sitter 1:1 for safety.
--- NOTE | 2018-03-25 21:50 | NUR ---
Seizure like activity Pt noted with 5 episodes of seizure like activity since 2028pm upto this time. Each episodes ranges from 35secs to 4:39mins. Patient was kept safe at all times during episode. Pt turns side to side during episode. No muscle rigidity, no drooling, jaw clenching nor incontinence was noted. Vitals signs noted on last episode was 110/66, VT 103, O2 Sat @ 97%. 1:1 sitter at bedside for safety. chau continue to monitor patient.
--- NOTE | 2018-03-25 23:22 | NUR ---
Seizure like activity Pt noted with 6 episodes of seizure like activity since 2209pm upto this time. Each episodes ranges from 45secs to 4:32mins. Patient was kept safe at all times during episode. Pt turns side to side during episode. No muscle rigidity, no drooling, jaw clenching nor incontinence was noted. Blood pressure noted WNL after each episodes. B/P 110/69, 107/58, 93/51/, 106/63, 107/63. DE 103, O2 Sat 96%. 1:1 sitter at bedside for safety. will continue to monitor patient.
--- NOTE | 2018-03-25 23:25 | NUR ---
PRN Vistaril/Robaxin/benadryl Patient still awake at this time. Pt still noted to be restless and anxious in bed with complaints of generalized body aches. She remains on a 1:1 sitter for safety. PRN Vistaril, Robaxin & Benadryl given as ordered. will monitor for effectiveness of medication.
[2018-03-26] VITALS: BP 101/60
--- NOTE | 2018-03-26 00:25 | NUR ---
PRN Reassessment Pt still awake at this time. Patient stated slight decrease in anxiety & relief from pain noted after pain medication. Pt stated, benadryl gives her the opposite effect and will not help her sleep. Will continue to monitor patient.
[2018-03-26] MEDS: ONDANSETRON 4 MG/2 ML VIAL IM PRN (02:13)
--- NOTE | 2018-03-26 02:13 | NUR ---
PRN Zofran Patient noted with 1 episode of vomiting. PRN Zofran 4mg IM administered on left deltoid and tolerated well. Will monitor for effectiveness of medication.
--- NOTE | 2018-03-26 03:13 | NUR ---
PRN Reassessment Patient asleep in bed and appears comfortable. No more episode of vomiting noted after Zofran IM administration. Medication noted to be effective. Contine to have 1:1 sitter at bedside. Will continue to monitor patient.
--- NOTE | 2018-03-26 07:30 | NUR ---
End of Shift Note: Pt is a 27 y/o female admitted for ETOH, Xanax, Valium & Percocet use. Pt presents with a flat affect, anxious & depressed mood, sweating, chills, c/o left knee and right wrist pain, fine tremors and mild headache. She is on a Modified Subutex and Valium taper and will be on day 5 today. Pt had multiple seizure like activity on my shift. Continue to be on 1:1 sitter for safety. She received PRN Zofran IM, Benadryl, Vistaril & Robaxin during my shift and were effective. Last 11 CIWA 13. Explained to patient current plan of care of the night and medication regimen. Both side rails up. Bed in the lowest position. Call light within pts reach. Will continue to monitor patient.
--- NOTE | 2018-03-26 07:45 | NUR ---
START OF SHIFT Endorse rcvd from ongoing nurse, client is in room, a/o x 4, she ambulatory with assistance. Sitter at bedside promoting safety. Client presents with anxious mood, agitation, anhedonia, chills, clammy skin, depression, difficulty concentrating, fine tremors and flushed face. Client noted with soft hand wrist due to a fall three weeks ago. and soft knee brace for support. Client reports difficulty thinking clearly, emotional volatility, fatigue, insomnia, muscle aches, stomach cramps, restless legs, sweating, and nausea. Client denies visual and auditory hallucinations. PRN Robaxin 750mg PO for myalgia, Vistaril 50mg PO for anxiety, Benadryl 50mg PO for insomnia, client slept 3 hrs. Last @ 1999. Client is on seizure precautions. Call light within reach.
[2018-03-26 08:55] VITALS: BP 113/73
[2018-03-26] MEDS ORDERED: PHENOBARBITAL 60 MG TABLET PO SCH (09:00)
[2018-03-26] MEDS: THIAMINE HCL 100 MG TABLET PO SCH (09:42)
[2018-03-26] MEDS: SULFAMETH/TRIMETH 800/160 MG TABLET PO SCH ×2 (09:42→20:33)
[2018-03-26] MEDS: VENLAFAXINE XR 37.5 MG CAP.SR.24H PO SCH (09:42)
[2018-03-26] MEDS: DIAZEPAM 5 MG TABLET PO SCH ×2 (09:43→20:33)
[2018-03-26] MEDS: FOLIC ACID 1 MG TABLET PO SCH (09:43)
[2018-03-26] MEDS: BUPRENORPHINE HCL 2 MG TAB.SUBL SL SCH ×3 (09:43→20:33)
[2018-03-26] MEDS: TOPIRAMATE 100 MG TABLET PO SCH ×2 (09:43→20:33)
[2018-03-26] MEDS: MULTIVITAMINS,THERAPEUTIC TABLET PO SCH (09:43)
[2018-03-26] MEDS: GABAPENTIN 300 MG CAPSULE PO SCH ×3 (09:44→17:02)
[2018-03-26] MEDS: NICOTINE 21 MG/24HR PATCH TD SCH (09:44)
[2018-03-26] MEDS: LAMOTRIGINE 100 MG TABLET PO SCH ×2 (09:48→20:33)
[2018-03-26] MEDS: METHOCARBAMOL 750 MG TABLET PO PRN ×2 (09:48→20:33)
[2018-03-26] MEDS: ONDANSETRON ODT 4 MG TAB.RAPDIS SL PRN ×2 (09:48→17:02)
--- NOTE | 2018-03-26 09:48 | NUR ---
CIWA 13 / COWS 11 Client presents with agitation, anxiety, clammy skin, depression, difficulty concentrating, difficulty thinking clearly, emotional volatility, enlarged pupils, tremors, generalized muscle aches, stomach cramps, nausea, restless legs, and sweating. PRN Robaxin 750mg PO, Zofran 4mg SL administered for myalgia and nausea. Sitter at bedside. call light within reach.
--- NOTE | 2018-03-26 10:18 | NUR ---
Reassess PRN Zofran 4mg SL client reports relief from administered nausea.
--- NOTE | 2018-03-26 10:48 | NUR ---
Reassess PRN Robaxin 750mg PO, client reports slight relief from myalgia on lower extremities. Call light within reach.
--- NOTE | 2018-03-26 11:48 | NUR ---
Nursing noted At 1141 Client stated, that she had the urge to move her feet, client's body turns tense and at 1 minute 45 seconds her lower extremities starts to shake uncontrollably, P 108, spO2 @ 95 on RA, turn client on her R side, small amount of saliva drooled out of her mouth, clients skin color does not change, skin moist and cool to touch, eyes are maintained close, primary nurse tried to assess pupils, but ayes are tightly closed. back is arched. Oxygen 2lpm via NC administered for comfort with saturations at 100%. after 5 minutes client opened eyes, looked around the room, closed eyes again, did not verbal respond to commands but follow instructions as to keep NC in place, make a fist with hand, and elevate head with a pillow, after that client closed eyes again and appear to be asleep, RR 18, even, non-labored, on RA again. CN and MD notified.
[2018-03-26 12:00] VITALS: BP 118/78
[2018-03-26] MEDS: IBUPROFEN 600 MG TABLET PO PRN (13:47)
[2018-03-26] MEDS: DICYCLOMINE HCL 20 MG TABLET PO PRN ×2 (13:47→20:33)
--- NOTE | 2018-03-26 13:47 | NUR ---
CIWA Client is in bed, she presents with bilateral hand tremors, fatigued, flushed face, anxious, agitated, abdominal spasms, generalized body aches 12/13, emesis x 1 episode, she declines Zofran IM, but would like to get Ativan IM, educated client that Ativan IM is for seizure activity not emesis or nausea, client requires additional education. PRN Vistaril 50mg PO, Clonidine 0.1mg PO, Bentyl 20mg PO, and Motrin 600mg PO administered for above withdrawal symptoms. Call light within reach.
[2018-03-26] MEDS: CLONIDINE HCL 0.1 MG TABLET PO PRN (13:48)
[2018-03-26] MEDS: HYDROXYZINE PAMOATE 25 MG CAPSULE PO PRN ×2 (13:48→20:46)
--- NOTE | 2018-03-26 14:47 | NUR ---
Reassess PRN Vistaril 50mg PO, Clonidine 0.1mg PO, Bentyl 20mg PO, and Motrin 600mg PO, client reports slight relief from anxiety agitation, abdominal spasms, generalized body aches 3/10, but tolerable. Call light within reach.
[2018-03-26 16:00] VITALS: BP 116/77
--- NOTE | 2018-03-26 16:19 | NUR ---
CIWA 13 / COWS 14 Client continues to present with agitation, irritability, clammy skin, enlarged pupils, goosebump, clammy skin, nausea, and difficulty concentrating. Subutex 2mg SL administered. Sitter at bedside. Call light within reach.
--- NOTE | 2018-03-26 17:02 | NUR ---
PRN Zofran 4mg SL administered for nausea, no episodes of emesis. Call light within reach.
--- NOTE | 2018-03-26 17:32 | NUR ---
Reassess PRN Zofran 4mg SL, client reports relief from nausea. Call light within reach.
--- NOTE | 2018-03-26 20:46 | NUR ---
CIWA 13 / 12 Client is in room, she appears anxious, irritable, flushed face, tremors, and difficulty concentrating. Client reports anxiety, myalgia on lower extremities, and abdominal spasms, PRN Vistaril 50mg PO, Robaxin 750mg PO, and Bentyl 20mg PO administered. Sitter at bedside. Call light within reach.
[2018-03-26 20:58] VITALS: BP 103/69
[2018-03-26] MEDS ORDERED: QUETIAPINE FUMARATE 100 MG TABLET PO SCH (21:00)
--- NOTE | 2018-03-26 21:38 | NUR ---
END OF SHIFT Endorse client to incoming nurse, she is to reassess PRNs meds administered at 2045. Client is in bed, a/o x name, place and situation, she is ambulatory with assistance. Client continues to present with anxious mood, agitation, chills, clammy skin, depression, difficulty concentrating, fine tremors and flushed face. Last CIWA 12 / 13 @ 2019. Adequate PO fluid intake 1243mL, void x 4. Client is not compliant with group therapy. Consumes 25-75% of meals. Call light within reach.
--- NOTE | 2018-03-26 21:45 | NUR ---
Assumed care of Pt. She is A/O X 4 . She is laying in bed.
--- NOTE | 2018-03-26 21:46 | NUR ---
PRN Bentyl,Robaxin and Vistaril effective as pt states she feels better. 1:1 sitter at bedside.
[2018-03-27] VITALS: BP 104/74
--- NOTE | 2018-03-27 00:10 | NUR ---
COWS 12 CIWA 10. She reports sweats,restlessness,anxiety and irritability.
[2018-03-27] MEDS: QUETIAPINE FUMARATE 100 MG TABLET PO PRN ×2 (01:36→22:04)
--- NOTE | 2018-03-27 01:40 | NUR ---
PRN Seroquel 300 mg PO PRN given as pt reports she is unable to sleep. Will monitor effectiveness.
--- NOTE | 2018-03-27 02:35 | NUR ---
PRN Seroquel effective as Pt is asleep.
--- NOTE | 2018-03-27 04:27 | NUR ---
Pt in bed with eyes closed. Resp even and unlabored, Call light in reach. Bed locked and low. z precautions noted. 1:1 sitter at bedside. VS refused.
--- NOTE | 2018-03-27 06:56 | NUR ---
END OF SHIFT: Pt continues on Valium /Subutex taper to manage s/s of w/d. Last COWS 12 CIWA 10 at midnight. She reported restlessness anxiety and insomnia and PRN Seroquel given and effective.She slept 7.5 hours. She continues on 1:1 for safety. Seizure precautions noted. Will pass shift report to oncoming day nurse.
--- NOTE | 2018-03-27 07:35 | NUR ---
START OF SHIFT: Pt. is a 27 y/o female admitted for the medically managed withdrawal from Benzodiazepines, ETOH, and Opiates. Pt. was placed on a 5 day valium taper and a 5 day subutex taper to manage her withdrawal symptoms. Endorse from previous shift pt. presented with anxiety, insomnia and restlessness. Received pt. in room, Pt. in bed with eyes closed. 1:1 at bedside for safety. Seizure precautions in place. Will continue to monitor pt.'s behavior for safety.
[2018-03-27 08:00] VITALS: BP 115/79
--- NOTE | 2018-03-27 08:00 | NUR ---
COWS/CIWA Assessment COWS of 10 and CIWA of 10. Pt. presents with anxiety, restlessness, tremors and body aches. Will given medication as ordered. Will continue to monitor pt.'s behavior for safety.
[2018-03-27] MEDS: TOPIRAMATE 100 MG TABLET PO SCH ×2 (08:35→21:34)
[2018-03-27] MEDS: GABAPENTIN 300 MG CAPSULE PO SCH ×3 (08:36→16:37)
[2018-03-27] MEDS: METHOCARBAMOL 750 MG TABLET PO PRN ×2 (08:36→16:45)
[2018-03-27] MEDS: DICYCLOMINE HCL 20 MG TABLET PO PRN ×2 (08:36→14:43)
[2018-03-27] MEDS: SULFAMETH/TRIMETH 800/160 MG TABLET PO SCH ×2 (08:36→21:33)
[2018-03-27] MEDS: CLONIDINE HCL 0.1 MG TABLET PO PRN ×2 (08:36→14:44)
--- NOTE | 2018-03-27 08:36 | NUR ---
PRN Medication Pt. in room and reports an increased in anxiety, body aches, and stomach cramps. PRN Clonidine, Vistaril, Robaxin, and Bentyl given at this time to manage withdrawal symptoms. Will continue to monitor pt. for medication effectiveness and safety.
[2018-03-27] MEDS: FOLIC ACID 1 MG TABLET PO SCH (08:37)
[2018-03-27] MEDS: MULTIVITAMINS,THERAPEUTIC TABLET PO SCH (08:37)
[2018-03-27] MEDS: VENLAFAXINE XR 37.5 MG CAP.SR.24H PO SCH (08:37)
[2018-03-27] MEDS: HYDROXYZINE PAMOATE 25 MG CAPSULE PO PRN ×3 (08:37→16:37)
[2018-03-27] MEDS: THIAMINE HCL 100 MG TABLET PO SCH (08:37)
[2018-03-27] MEDS: NICOTINE 21 MG/24HR PATCH TD SCH (09:00)
[2018-03-27] MEDS ORDERED: BUPRENORPHINE HCL 2 MG TAB.SUBL SL SCH (09:00)
[2018-03-27] MEDS ORDERED: PHENOBARBITAL 60 MG TABLET PO SCH (09:00)
--- NOTE | 2018-03-27 09:30 | NUR ---
PRN Re-Assessment Pt. reports a decreased in anxiety and body aches. Medication effective. Will continue monitor pt.'s behavior for safety.
[2018-03-27] MEDS: LAMOTRIGINE 100 MG TABLET PO SCH ×2 (09:55→21:34)
[2018-03-27 12:00] VITALS: BP 117/70
--- NOTE | 2018-03-27 12:00 | NUR ---
COWS/CIWA Assessment COWS of 10 and CIWA of 10. Pt. presents with anxiety, restlessness, tremors and body aches. Pt. compliant with medication regiment. Will continue to monitor pt.'s behavior for safety.
--- NOTE | 2018-03-27 14:44 | NUR ---
PRN Medication Pt. in room and reports an increased in anxiety, body aches, and stomach cramps. PRN Clonidine, Vistaril, and Bentyl given at this time to manage withdrawal symptoms. Will continue to monitor pt. for medication effectiveness and safety.
--- NOTE | 2018-03-27 15:15 | NUR ---
PRN Re-Assessment Pt. reports a decreased in anxiety and body aches. Medication effective. Will continue monitor pt.'s behavior for safety.
[2018-03-27 16:00] VITALS: BP 103/70
--- NOTE | 2018-03-27 16:20 | NUR ---
Procedure Note Pt. in bed complaining of abdominal discomfort. Pt. reports not being able to urinate and states she feels full. Performed a straight catheter per MD order. Pt. tolerated procedure well. A total of 750 ml was removed from pt. MD aware. Will continue to monitor pt.'s behavior for safety.
[2018-03-27] MEDS: IBUPROFEN 600 MG TABLET PO PRN (16:37)
--- NOTE | 2018-03-27 16:45 | NUR ---
PRN Medication Pt. in bed complaining of body aches 11/12. PRN Motrin, and Robaxin given at this time. Will continue to monitor pt.'s behavior for safety and medication effectiveness.
--- NOTE | 2018-03-27 17:30 | NUR ---
PRN Re-Assessment Pt. in room and reports a decreased in body aches. Pt. reports 2/10 pain. Medication effective. Will continue to monitor pt.'s behavior for safety.
--- NOTE | 2018-03-27 19:00 | NUR ---
End OF SHIFT: Pt. is a 27 y/o female admitted for the medically managed withdrawal from Benzodiazepines, ETOH, and Opiates. Pt. was placed on a 5 day valium taper and a 5 day subutex taper to manage her withdrawal symptoms. Throughout shift pt. presented with anxiety, insomnia and restlessness. 1:1 at bedside for safety. Seizure precautions in place. Will endorse pt.'s care to oncoming shift.
[2018-03-27] MEDS ORDERED: METH-406 PO (19:30)
[2018-03-27] MEDS ORDERED: HYDR-3895 PO (19:30)
[2018-03-27] MEDS ORDERED: CLON0.1T14 PO (19:30)
[2018-03-27] MEDS ORDERED: SULF1TAB3 PO (19:30)
[2018-03-27] MEDS ORDERED: GABA300C PO (19:30)
[2018-03-27] MEDS ORDERED: VENL37.55 PO (19:30)
[2018-03-27] MEDS ORDERED: LAMO150T2 PO (19:30)
[2018-03-27] MEDS ORDERED: DICY20TA28 PO (19:30)
[2018-03-27] MEDS ORDERED: IBUP-1955 PO (19:30)
[2018-03-27] MEDS ORDERED: QUET100T PO (19:30)
[2018-03-27] MEDS ORDERED: TOPI200T PO (19:30)
--- NOTE | 2018-03-27 19:30 | NUR ---
START OF SHIFT Pt. is a 27 y/o female admitted for the medically managed withdrawal from Benzodiazepines, ETOH, and Opiates. Pt. was placed on a 5 day Valium taper and a 5 day Subutex taper to manage her withdrawal symptoms.Pt has completed her taper and is scheduled for discharge tomorrow.Received Pt in room, lying in bed with eyes closed. 1:1 staff is at bedside for safety. Breathing is even and non labored,no s/s of distress noted.Last COWS/CIWA=10. PRN Clonidine, Vistaril, Robaxin, Motrin and Bentyl were given per day shift and were effective to manage withdrawal symptoms. All safety measures in place,will continue to monitor for safety.
[2018-03-27 20:00] VITALS: BP 95/60
--- NOTE | 2018-03-27 22:05 | NUR ---
PRN SEROQUEL 300 MG PO GIVEN FOR C/O INSOMNIA.WILL MONITOR.
--- NOTE | 2018-03-27 22:20 | NUR ---
Pt c/o abdominal discomfort;c/o inability to urinate.PO fluids encouraged,also encouraged to try to void. Pt was able to void 100mi.Will continue to monitor.
--- NOTE | 2018-03-27 22:23 | NUR ---
Bladder Scan Bladder scan done, residual volume of 220 ml. No bladder distention noted. No straight cath needed at this time based on MD order.
--- NOTE | 2018-03-27 23:00 | NUR ---
PRN REASSESSMENT Pt is calm and resting in bed with eyes closed,breathing is even and non labored,no s/s of distress noted,will continue to monitor.
--- NOTE | 2018-03-28 | NUR ---
COWS/CIWA COWS/CIWA deferred due to Pt being asleep.Pt is calm and resting in bed with eyes closed,breathing is even and non labored,no s/s of distress noted,v/s refused, sitter is at bedside,will continue to monitor for safety.
--- NOTE | 2018-03-28 01:00 | NUR ---
Pt voided 750 ml urine.
--- NOTE | 2018-03-28 06:57 | NUR ---
END OF SHIFT Pt. is a 27 y/o female admitted for the medically supervised withdrawal from Benzodiazepines, ETOH, and Opiates. Pt has completed her taper and is scheduled for discharge today. Pt is in room, lying in bed with eyes closed. 1:1 staff is at bedside for safety. Breathing is even and non labored,no s/s of distress noted.Last COWS=9; CIWA=8. PRN Seroquel was given for insomnia and was effective.Pt slept 8 hours,fluid intake was 500 ml,voided x 4,no BM reported. All safety measures in place,will continue to monitor for safety.
--- NOTE | 2018-03-28 07:00 | NUR ---
Intake and Output Clarification Total fluid intake: 875 ml Total voids: 4 or 1655 ml
--- NOTE | 2018-03-28 07:30 | NUR ---
Start of Shift Last COWS 9, CIWA 8 at 1999. Pt Completed 5 day Valium taper. Pt to be discharged to [facility] this afternoon. Pt is disheveled, guarded, flat affect, and depressed mood. Pt continues to have gross tremors, body aches, fatigue, anhedonia, decreased appetite, dysphoria, and warm skin to touch. Pt on 1:1 for safety. Pt slept 8 hours last night. Encouraged Pt to attend group therapy sessions to identify positive coping skills to maintain sobriety. Bed in lowest position. Side rails up x2. Call light functioning and within reach. All needs attended and met. Will continue to monitor for withdrawal symptoms.
[2018-03-28 08:00] VITALS: BP 112/70
--- NOTE | 2018-03-28 08:00 | NUR ---
COWS 8, CIWA 7- Pt is disheveled, has gross tremors, anxiety, fatigue, anhedonia, decreased appetite, and dysphoria.
[2018-03-28] MEDS: NICOTINE 21 MG/24HR PATCH TD SCH (09:00)
[2018-03-28] MEDS: SULFAMETH/TRIMETH 800/160 MG TABLET PO SCH (10:06)
[2018-03-28] MEDS: LAMOTRIGINE 100 MG TABLET PO SCH (10:06)
[2018-03-28] MEDS: THIAMINE HCL 100 MG TABLET PO SCH (10:06)
[2018-03-28] MEDS: FOLIC ACID 1 MG TABLET PO SCH (10:06)
[2018-03-28] MEDS: MULTIVITAMINS,THERAPEUTIC TABLET PO SCH (10:06)
[2018-03-28] MEDS: VENLAFAXINE XR 37.5 MG CAP.SR.24H PO SCH (10:07)
[2018-03-28] MEDS: GABAPENTIN 300 MG CAPSULE PO SCH (10:07)
[2018-03-28] MEDS: TOPIRAMATE 100 MG TABLET PO SCH (10:07)
[2018-03-28] MEDS: DICYCLOMINE HCL 20 MG TABLET PO PRN (10:14)
[2018-03-28] MEDS: METHOCARBAMOL 750 MG TABLET PO PRN (10:14)
--- NOTE | 2018-03-28 10:15 | NUR ---
PRN ROBAXIN 750 mg po for generalized body aches PRN BENTYL 20 MG PO FOR STOMACH CRAMPS
--- NOTE | 2018-03-28 11:15 | NUR ---
Reassess Robaxin- Pt reports body aches improved. Reassess Bentyl- Pt reports stomach cramps resolved.
--- NOTE | 2018-03-28 11:55 | NUR ---
Discharge Note Patient has been discharged from [facility] on 03/28/2018 at 1155. Pt is in stable condition, VS WNL. She denies suicidal and homicidal ideations at this time. All documentation has been completed, paperwork signed and dated. Pt left with all her belongings, medication and prescriptions. notified.
== END 2018-03-28 11:55 | disposition other institution (70) | DRG 895 ==
LOC: SRC 14:35
PROVIDERS: ADMIT Family Medicine Addiction Medicine; ATTEND Family Medicine Addiction Medicine
PROC: HZ2ZZZZ Detoxification Services for Substance Abuse Treatment (ICD-10-PCS; principal; 2018-03-22)
PROC: HZ31ZZZ Individual Counseling for Substance Abuse Treatment, Behavioral (ICD-10-PCS; 2018-03-25)
DX: F10.230 Alcohol dependence with withdrawal, uncomplicated (principal); F31.81 Bipolar II disorder; F50.00 Anorexia nervosa, unspecified; Z68.1 Body mass index [BMI] 19.9 or less, adult; F11.23 Opioid dependence with withdrawal; Y90.9 Presence of alcohol in blood, level not specified; Z91.89 Other specified personal risk factors, not elsewhere classified; F41.0 Panic disorder [episodic paroxysmal anxiety]; F41.1 Generalized anxiety disorder; F44.5 Conversion disorder with seizures or convulsions; F17.210 Nicotine dependence, cigarettes, uncomplicated; Z86.59 Personal history of other mental and behavioral disorders; J45.909 Unspecified asthma, uncomplicated; F13.239 Sedative, hypnotic or anxiolytic dependence with withdrawal, unspecified; Z87.11 Personal history of peptic ulcer disease
CPT/HCPCS: 36415; 80307; 83690; 83735; 84443; 84703; 85025; 86592; 86705; 86803; 87077; 87086; 87340; 87806; A4663; A9150; C1758; G0480; J2060; J2405; J3411; J3535; J8499; Q0162; Q0163

== ENCOUNTER 2018-03-22 19:29 | Outpatient (CLI) | payer BC ==
[2018-03-22] MEDS ORDERED: GABA300C PO (19:42)
[2018-03-22] MEDS ORDERED: LAMO150T2 PO (19:42)
[2018-03-22] MEDS ORDERED: TOPI200T PO (19:43)
[2018-03-22] MEDS ORDERED: QUET300T2 PO (19:44)
[2018-03-22] MEDS ORDERED: QUET25TA PO (19:45)
[2018-03-22] MEDS ORDERED: ALBU8.5H8 IH (20:23)
[2018-03-23] MEDS ORDERED: EMOL20CR TP (00:33)
[2018-03-23] MEDS ORDERED: CIPR2.5D OP (00:33)
[2018-03-23] MEDS ORDERED: BUTA1CAP46 PO (00:47)
== END 2018-03-22 23:59 | disposition other institution (70) ==
LOC: RAD 19:29
PROVIDERS: ATTEND Family Medicine Addiction Medicine
DX: R56.9 Unspecified convulsions (principal); F41.9 Anxiety disorder, unspecified; F32.9 Major depressive disorder, single episode, unspecified; F17.200 Nicotine dependence, unspecified, uncomplicated
CPT/HCPCS: 70450